=== PATIENT | female | born 1960 | race Caucasian/White ===

== ENCOUNTER → 2016-06-04 | Outpatient (CLI) | payer BC ==
[~2016-06-04] MED LIST: LEXA10TA PO; METF1000 PO; TOPA100T11 PO; VESI5TAB PO
[2016-06-04 12:52] LABS: HEMATOCRIT 40.5 % (35.0-46.0); MEAN CELL VOLUME 89.7 FL (80.0-100.0); MEAN CORPUSCULAR HEMOGLOBIN 30.3 PG (27.0-34.0); MEAN CORPUSCULAR HGB CONC 33.8 % (32.0-36.0); PLATELET COUNT 229 TH/MM3 (150-450); RED BLOOD COUNT 4.51 MIL/MM3 (4.00-5.30); RED CELL DISTRIBUTION WIDTH 13.2 % (11.6-17.2); REVIEW FLAG FINAL
[2016-06-04 13:01] LABS: BACTERIA, URINE OCC /hpf; BLOOD, URINE NEG (NEG); GLUCOSE,URINE TRACE mg/dL (NEG); HYALINE CAST, URINE 2 /lpf (RARE); KETONE, URINE NEG (NEG); MUCUS URINE FEW /lpf (OCC); NITRITE,URINE NEG (NEG); PH, URINE 5.5 (5.0-8.5); SQUAMOUS EPITHELIAL CELL URINE 25 /hpf (0-5); URINE COLOR YELLOW (YELLW/STRAW)
[2016-06-04 13:32] LABS: ALKALINE PHOSPHATASE 50 U/L (45-117); ALT (GPT) 47 U/L (10-53); ANION GAP 9 MEQ/L (5-15); AST (GOT) 42 U/L (15-37); BICARBONATE 24.7 MEQ/L (21.0-32.0); BLOOD UREA NITROGEN 17 MG/DL (7-18); CHLORIDE 106 MEQ/L (98-107); GLOMERULAR FILTRATION RATE 66 ML/MIN (>89); GLUCOSE,FASTING 184 MG/DL (74-99); POTASSIUM 4.2 MEQ/L (3.5-5.1); SODIUM (NA) 140 MEQ/L (136-145); TOTAL BILIRUBIN ADULT 0.7 MG/DL (0.2-1.0)
--- NOTE | 2016-06-04 14:50 | RADRPT ---
EXAM DATE/TIME: 06/04/2016 12:52 [place] COMPARISON: No previous studies available for comparison. INDICATIONS : Evaluate for pneumonia, pneumothorax or communicable disease. Pre op D&C. MEDICAL HISTORY : Diabetes mellitus type II. SURGICAL HISTORY : None. ENCOUNTER: Initial ACUITY: 1 day PAIN SCORE: 0/10 LOCATION: Bilateral chest FINDINGS: PA and lateral views of the chest demonstrate the lungs to be symmetrically aerated without evidence of mass, infiltrate or effusion. The cardiomediastinal contours are unremarkable. Osseous structure s are intact. CONCLUSION: 1. No acute cardiopulmonary findings. Heraclio Lozano MD on June 04, 2016 at 14:49 Board Certified Radiologist. This report was verified electronically.
--- NOTE | 2016-06-05 13:33 | EKG ---
Date Performed: 06/04/2016 Time Performed: 12:17:11 PTAGE: 55 years EKG: Sinus rhythm BORDERLINE LEFT AXIS DEVIATION BORDERLINE ECG NO PREVIOUS TRACING DOCTOR: Geoff Pinto Interpretating Date/Time 06/05/2016 13:32:16
== END ==
LOC: CPRE 12:01
PROVIDERS: ATTEND Obstetrics & Gynecology
DX: Z01.810 Encounter for preprocedural cardiovascular examination (principal); Z01.811 Encounter for preprocedural respiratory examination; Z01.812 Encounter for preprocedural laboratory examination; N87.1 Moderate cervical dysplasia; A63.0 Anogenital (venereal) warts
CPT/HCPCS: 36415; 71020; 80053; 81001; 84443; 85027; 93005

== ENCOUNTER → 2016-06-18 | Day surgery (SDC) | payer BC ==
[~2016-06-18] VITALS: Ht 170.2 cm; Wt 145.5 kg
[~2016-06-18] MED LIST changes: +ACETAMINOPHEN 1000 MG/100 ML VIAL IV ONE; +CHLORHEXIDINE GLUCONATE 2 % 1 PACK (2 CLOTHS) TOPICAL PRN; +FAMOTIDINE 20 MG/2 ML VIAL ONE; +INSULIN HUMAN REGULAR 1,000 UNITS/10 ML VIAL SQ PRN; +KETOROLAC TROMETHAMINE 60 MG/2 ML (IM) VIAL IM ONE; +LACTATED RINGER'S 1000 ML IV PRN; +METOPROLOL TARTRATE 25 MG TAB PO PRN; +MIDAZOLAM HCL 2 MG/2 ML VIAL ONE; +NEOSTIGMINE 3 MG/3 ML SYR IV ONE; +ONDANSETRON HCL 4 MG/2 ML VIAL ONE; +OXYTOCIN 10 UNIT/ML AMP ONE; +POVIDONE IODINE 5% (ANTISEPSIS KIT) 4 APPLICATIONS EACH NARE PRN; +PROPOFOL 200 MG/20 ML AMP IV ONE; +SODIUM CHLORID 0.9% 500 ML IV PRN; +fentaNYL CITRATE 250 MCG/5 ML AMP ONE
[2016-06-18 06:48] VITALS: BP 126/77; PULSE 84; RESP 20; TEMP 98.2; O2SAT 96
[2016-06-18 11:00] VITALS: BP 141/76; PULSE 63; RESP 16; TEMP 97.8; O2SAT 97
--- NOTE | 2016-06-19 13:29 | MP ---
cc: JOSEPH WANG DATE OF SURGERY 06/18/2016 PREOPERATIVE DIAGNOSIS Moderate dysplasia of the endocervix. POSTOPERATIVE DIAGNOSES Moderate dysplasia of the endocervix. Bicornuate uterus. PROCEDURE Cone biopsy, dilation and curettage, hysteroscopic exam. ANESTHESIA General SURGEON Earline Wang MD FINDINGS 1. On examination under anesthesia, the vagina was clean. The cervix was small and nulliparous and very well suspended. No adnexal masses. No uterine enlargement. 2. The D&C revealed minimal tissue. 3. The hysteroscopic exam revealed a bicornuate uterus. COMPLICATIONS None. COUNTS Correct. ESTIMATED BLOOD LOSS 25 cc. FLUIDS Crystalloids. DISPOSITION The patient tolerated the procedure well and went to the recovery room in good condition. PROCEDURE The patient was taken to the operating room, identified by name band and verbally, given a general anesthetic, prepped and draped in the usual sterile fashion for vaginal surgery with the exception that she did not have a vaginal prep due to the cone biopsy. Once she was prepped and draped, a time-out was taken and then we proceeded with examination under anesthesia with the above findings. A speculum was placed in the vagina. The anterior lip of the cervix was grasped with a single-tooth tenaculum. Two lateral stay sutures were placed with 2-0 Vicryl. A cone was then taken making a circumferential incision around the cervix and removed with scissors. This was sent for pathologic evaluation. The patient needed to have dilation to get the ECC. Her cervix was somewhat stenotic. Once we dilated the cervix, we got a good endocervical curettage and then we inserted the hysteroscope. The entire endometrium was atrophic, without lesions, polyps or submucous myomas. However, it was noted that she did have a bicornuate uterus. Both ostia were seen. The hysteroscope was removed at this time and endometrial curettings were taken. At this time we cauterized the cone bed and hemostasis was good. We put a piece of Surgicel in there and tied it in. Hemostasis was excellent. Washed the vagina out and we were done. R. Joseph Wang MD RJV/DARIUS /9:18 AM /1:22 PM
== END | disposition home or self-care (01) ==
LOC: HSDC 05:41
PROVIDERS: ATTEND Obstetrics & Gynecology
DX: N87.1 Moderate cervical dysplasia (principal); A63.0 Anogenital (venereal) warts; N72 Inflammatory disease of cervix uteri
CPT/HCPCS: 00940; 57520; 88305; 88307; J0131; J1885; J2250; J2405; J2710; J3010; J7120; J2590